=== PATIENT | male | born 1955 | race Caucasian/White ===

== ENCOUNTER 2016-10-08 10:59 | Outpatient (CLI) | payer SELFPAY ==
[~2016-10-08 10:59] MED LIST: CEPHALEXIN250 MG PO; NORCO1 TA1 PO
--- NOTE | 2016-10-08 13:11 | DIAGNOSTIC IMAGING REPORT ---
PROCEDURE: MR LOW EXT NONJOINT WO CON-LT INDICATION: PAIN, R/O RUPTURE TO THE PLANTAR FASCIAL LIGAMENT, initial encounter TECHNIQUE: T1 and STIR sagittal, axial and coronal images of the foot. T1 and STIR axial-oblique images of the mid and distal foot. COMPARISON: None. FINDINGS: Partial tear of the plantar fascia medial bundle near its origin. Lateral bundle is unremarkable. No evidence of an occult fracture. Normal sinus tarsi. Mild first MTP joint degenerative changes. Tibiofibular, anterior and posterior talofibular, calcaneofibular and deltoid ligaments are intact. The posterior tibial, flexor digitorum longus, flexor hallucis longus, peroneal brevis, peroneus longus and Achilles tendons are unremarkable. Normal extensor tendons. IMPRESSION: 1. Partial tear of the plantar fascia medial bundle near its origin. 2. Mild first MTP joint degenerative changes
== END 2016-10-08 23:00 ==
LOC: MRI SRH 10:59
DX: S96.812A Strain of other specified muscles and tendons at ankle and foot level, left foot, initial encounter (principal)